=== PATIENT | female | born 1990 | race Two or more races ===

== ENCOUNTER 2017-09-09 18:11 | Emergency (ER) | payer MEDICAID ==
[~2017-09-09] VITALS: Ht 154.9 cm; Wt 52.2 kg
[~2017-09-09 18:11] MED LIST: ONDANSETRON ODT4 MG PO; PROMETHAZINE12.5 M1 PO; REGLAN10 MG PO
--- OUTSIDE RECORDS SUMMARY | 2017-09-09 18:18 | XMS | Clinical Summary ---
Demographics + + + | Address | [address] | | | [place] [address] | + + + | Home Phone | | + + + | Preferred Language | Unknown | + + + | Marital Status | Single | + + + | Jewish Affiliation | Unknown | + + + | Race | White | + + + | Ethnic Group | Not or | + + + Author + + + | Organization | Unknown | + + + | Address | Unknown | + + + | Phone | Unavailable | + + + Care Team Providers + +------+ + | Care Auto Body Shop Manager Name | Role | Phone | + +------+ + PP | Unavailable | + +------+ + Source Comments ARY is fully live on both [facility] and [facility] InPatient.[facility] Allergies Not on File Current Medications Not on file Active Problems Not on file Social History + +-------+ +--------+------+ | Tobacco Use | Types | Packs/Day | Years | Date | | | | | Used | | + +-------+ +--------+------+ | Never Assessed | | | | | + +-------+ +--------+------+ + + + | Sex Assigned at | Date Recorded | | | | + + + | Not on file | | + + + Plan of Treatment + + + + + | Health Maintenance | Due Date | Last Done | Comments | + + + + + | INFLUENZA VACCINE | | | | | (FLU SHOT) | 8 | | | + + + + + Results Not on filefrom Last 3 Months"
--- OUTSIDE RECORDS SUMMARY | 2017-09-09 18:48 | XMS ---
Demographics + + + | Address | [address] | | | [place] [address] | + + + | Preferred Language | Unknown | + + + | Marital Status | Unknown | + + + | Mu-Ism Affiliation | Unknown | + + + | Race | Unknown | + + + | Ethnic Group | Unknown | + + + Author + + + | Author | [facility] | + + + | Organization | [facility] | + + + | Address | [address] | | | [place] [address] | + + + | Phone | | + + + Care Team Providers + + + + | Care Network Operations Center Technician Name | Role | Phone | + + + + Unavailable | Unavailable | + + + + PROBLEMS +---------+ + + +--------+ + + | Type | Condition | ICD9-CM | [id number] | Onset | Condition | SNOMED | | | | Code | Code | Dates | Status | Code | +---------+ + + +--------+ + + | Problem | Encounter | Z34.90 | | | Active | [id number] | | | for | | | | | | | | supervisio | | | | | | | | n of | | | | | | | | normal | | | | | | | | | | | | | | +---------+ + + +--------+ + + ALLERGIES Unknown Allergies SOCIAL HISTORY No smoking Hx information available PLAN OF CARE VITAL SIGNS MEDICATIONS Unknown Medications RESULTS No Results PROCEDURES No Known procedures IMMUNIZATIONS No Known Immunizations"
--- OUTSIDE RECORDS SUMMARY | 2017-09-09 18:48 | XMS | Clinical Summary ---
Demographics + + + | Address | [address] | | | [place] [address] | + + + | Home Phone | | + + + | Preferred Language | Unknown | + + + | Marital Status | Single | + + + | Mormonism Affiliation | Unknown | + + + | Race | White | + + + | Ethnic Group | Not or | + + + Author + + + | Organization | Unknown | + + + | Address | Unknown | + + + | Phone | Unavailable | + + + Care Team Providers + +------+ + | Care Billboard Installer Name | Role | Phone | + +------+ + PP | Unavailable | + +------+ + Source Comments ARY is fully live on both [facility] Ambulatory and [facility] InPatient.[facility] Allergies Not on File Current Medications Not [...]
--- OUTSIDE RECORDS SUMMARY | 2017-09-09 18:48 | XMS ---
Demographics + + + | Address | [address] | | | [place] [address] | + + + | Preferred Language | Unknown | + + + | Marital Status | Unknown | + + + | Quaker Affiliation | Unknown | + + + | Race | Unknown | + + + | Ethnic Group | Unknown | + + + Author + + + | Author | [facility] | + + + | Organization | [facility] | + + + | Address | [address] | | | [place] [address] | + + + | Phone | | + + + Care Team Providers + + + + | Care Fireworks Maker Name | Role | Phone | + + + + Unavailable | Unavailable | + + + + PROBLEMS +---------+ + + +--------+ + + | Type | Condition | ICD9-CM | [id number] | Onset | Condition | SNOMED | | | | Code | Code | Dates | Status | Code | +---------+ + + +--------+ + + | Problem | Encounter | Z34.90 | | | Active | [id number] | | | for | | | [...]
[2017-09-09] MEDS ORDERED: NORCO 5-325 TA1 EACH PO (20:12)
[2017-09-09] MEDS ORDERED: CRUTCH1 EACH (20:13)
== END 2017-09-09 20:34 | disposition home or self-care (01) ==
LOC: ED 18:11
DX: S76.011A Strain of muscle, fascia and tendon of right hip, initial encounter (principal); X50.1XXA Overexertion from prolonged static or awkward postures, initial encounter
CPT/HCPCS: 73502; 73700; 96372; 99284; J2270

== ENCOUNTER 2017-11-18 02:16 | Emergency (ER) | payer OTHER ==
[~2017-11-18] VITALS: Ht 154.9 cm; Wt 52.2 kg
[~2017-11-18 02:16] MED LIST changes: +CRUTCH1 EACH; +NORCO 5-325 TA1 EACH PO
[2017-11-18] MEDS ORDERED: KEPPRA1000 MG PO (05:11)
== END 2017-11-18 05:28 | disposition home or self-care (01) ==
LOC: ED 02:16
DX: G40.909 Epilepsy, unspecified, not intractable, without status epilepticus (principal)
CPT/HCPCS: 80053; 81001; 84703; 85025; 96365; 99284; G0480; J1953

== ENCOUNTER 2017-12-10 02:24 | Emergency (ER) | payer OTHER ==
[~2017-12-10] VITALS: Ht 154.9 cm; Wt 52.2 kg
[~2017-12-10 02:24] MED LIST changes: +KEPPRA1000 MG PO
[2017-12-10] MEDS ORDERED: KEPPRA500 MG PO (07:12)
== END 2017-12-10 08:28 | disposition home or self-care (01) ==
LOC: ED 02:24
DX: G40.409 Other generalized epilepsy and epileptic syndromes, not intractable, without status epilepticus (principal); Z79.899 Other long term (current) drug therapy
CPT/HCPCS: 80053; 85025; 96361; 96365; 96375; 99284; G0480; J1953; J2060; J7030

== ENCOUNTER 2021-12-19 21:19 | Emergency (ER) | payer OTHER ==
[~2021-12-19] VITALS: Ht 154.9 cm; Wt 52.2 kg
[~2021-12-19 21:19] MED LIST changes: +KEPPRA500 MG PO
--- OUTSIDE RECORDS SUMMARY | 2021-12-19 21:22 | XMS ---
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 Ronit VISIT COUNT (12 MO.) 1 LEFTY [place] TOTAL 1 NOTE: Visits indicate total known visits. ED/UCC VISIT TRACKING (12 MO.) 12/19/2021 21:20 LEFTY [facility] [place] TYPE: Emergency COMPLAINT: - DENTAL PAIN INPATIENT VISIT TRACKING (12 MO.) No inpatient visits to display in this time frame [email or web address]
[2021-12-19] MEDS ORDERED: AMOX TR-K CLV1 EAC1 PO (22:16)
== END 2021-12-19 22:31 | disposition home or self-care (01) ==
LOC: ED 21:19
PROC: 0C9WXZ0 Drainage of Upper Tooth, External Approach, Single (ICD-10-PCS; principal; 2021-12-19)
DX: K04.7 Periapical abscess without sinus (principal)
CPT/HCPCS: 10160; 80053; 81001; 83690; 84703; 85025; 99282-25; A9270